=== PATIENT | male | born 1985 | race Caucasian/White ===

== ENCOUNTER → 2018-06-26 | Outpatient (CLI) | payer BC ==
--- NOTE | 2018-06-27 09:47 | KCIC ---
Examination: 2 views of the left shoulder, 3 views of the cervical spine and thoracic spine HISTORY: History of back pain, left shoulder pain, neck pain COMPARISON: None available FINDINGS: The cervical and thoracic vertebral body heights are maintained. There is mild reversal of normal cervical lordosis. No evidence of listhesis identified. The facets are well aligned. The lateral masses of C1 are aligned with C2 vertebra. The C2 dens appears intact. No evidence of prevertebral soft tissue swelling. The humerus head is within the glenoid. The acromioclavicular joint grossly appears unremarkable. IMPRESSION: 1. No acute osseous findings. Electronically signed by: Primitivo Bergeron MD (06/26/2018 2:15 PM) [facility]
== END | disposition home or self-care (01) ==
LOC: KCIC 12:19
PROVIDERS: ATTEND Nurse Practitioner Family
DX: G95.89 Other specified diseases of spinal cord (principal); M40.40 Postural lordosis, site unspecified
CPT/HCPCS: 72040; 72072; 73030